=== PATIENT | female | born 1945 | race Asian ===

== ENCOUNTER 2017-05-02 05:44 | Inpatient (IN) | payer MEDICARE, OTHER ==
[~2017-05-02] VITALS: Ht 157.5 cm; Wt 48.5 kg
[2017-05-02] VITALS (7 sets, daily range): BP systolic 109–189; BP diastolic 61–91
[2017-05-02] MEDS ORDERED: VENTOLIN HFA18 GM INH ×2 (05:47→06:29)
[2017-05-02] MEDS ORDERED: Ipratropium 0.02% Inh Soln 2.5ml UD ONE (05:48)
[2017-05-02] MEDS ORDERED: Albuterol ud Inhalation ONE (05:48)
--- NOTE | 2017-05-02 05:50 | Emergency Room Report ---
History of Present Illness General Chief Complaint: Dyspnea/Respdistress Source: Patient, EMS Present Illness HPI Is a 71-year-old female with a history of COPD. She's only taking albuterol inhaler. Not on oxygen at home. She was just admitted at [facility] 17 days ago. She presents with shortness of breath. Per EMS she was in respiratory distress. Oxygenation was 97% on 2 L. She says she's not a smoker by EMS in her house smells of smoke. They gave her 5 mg of albuterol treatment and brought her here. Patient said she felt better now. Onset tonight. No nausea no vomiting. No fever chills denies chest pain. Worse with exertion. Allergies: Coded Allergies: No Known Allergies (Unverified , 05/02/17) Patient History Past Medical History: see triage record, old chart reviewed, COPD Past Surgical History: other Pertinent Family History: none Social History: Denies: smoking Last Menstrual Period: N/A Now: No Immunizations: other Reviewed Nursing Documentation: PMH: Agreed, PSxH: Agreed Nursing Documentation-PMH Hx COPD: Yes Review of Systems Eye: Denies: eye pain, blurred vision ENT: Denies: ear pain, nose congestion, throat swelling Respiratory: Reports: cough, shortness of breath, wheezing Cardiovascular: Denies: chest pain, palpitations Gastrointestinal: Denies: abdominal pain, diarrhea, nausea, vomiting Musculoskeletal: Denies: back pain, joint pain Skin: Denies: rash Neurological: Denies: headache, numbness Endocrine: Denies: increased thirst, increased urine Hematologic/Lymphatic: Denies: easy bruising All Other Systems: negative except mentioned in HPI Physical Exam Vital Signs Date Time Temp Pulse Resp B/P (MAP) Pulse Ox O2 Delivery O2 Flow Rate FiO2 05/02/17 05:38 97.0 102 30 188/103 97 Nasal Cannula vitals with high blood pressure Sp02 EP Interpretation: reviewed, normal General Appearance: no apparent distress, alert, thin Head: normocephalic, atraumatic Eyes: bilateral eye PERRL, bilateral eye EOMI ENT: hearing grossly normal, normal pharynx Neck: full range of motion, supple, no meningismus Respiratory: chest non-tender, respiratory distress, decreased breath sounds, accessory muscle use, wheezing Cardiovascular #1: regular rate, rhythm, no murmur Gastrointestinal: normal bowel sounds, non tender, no mass, no organomegaly, no bruit, non-distended Musculoskeletal: back normal, gait/station normal, normal range of motion Psychiatric: mood/affect normal Skin: warm/dry Medical Decision Making Diagnostic Impression: Primary Impression: Respiratory distress Additional Impressions: Acute on chronic respiratory failure Qualified Codes: J96.20 - Acute and chronic respiratory failure, unspecified whether with hypoxia or hypercapnia COPD exacerbation ER Course Patient presents with respiratory distress secondary to COPD exacerbation. Blood pressure improved after nebulizer treatment. She said she felt better now. She did not require BiPAP. She receive nebulizer treatment and steroid. Will admit for further workup. Lab Results Impression labs unremarkable EKG Diagnostic Results Rate: normal Rhythm: NSR ST Segments: no acute changes Rhythm Strip Diag. Results Rhythm Strip Time: 06:19 EP Interpretation: yes Rate: 91 Rhythm: NSR, no PVC's, no ectopy Chest X-Ray Diagnostic Results Chest X-Ray Diagnostic Results : Chest X-Ray Ordered: Yes # of Views/Limited/Complete: 1 View Indication: Shortness of Breath EP Interpretation: Yes Interpretation: no consolidation, no effusion, no pneumothorax, no acute cardiopulmonary disease Impression: Other - copd Electronically Signed by: Electronically signed by Rich Shepherd MD Last Vital Signs Date Time Temp Pulse Resp B/P (MAP) Pulse Ox O2 Delivery O2 Flow Rate FiO2 05/02/17 05:38 97.0 102 30 188/103 97 Nasal Cannula Status: improved Disposition: ADMITTED INPATIENT Condition: Serious RICH SHEPHERD M.D. May 02, 2017 05:50
[2017-05-02] MEDS ORDERED: Albuterol ud Inhalation HHN ONE (06:00)
[2017-05-02] MEDS ORDERED: Ipratropium 0.02% Inh Soln 2.5ml UD HHN ONE (06:00)
[2017-05-02] MEDS ORDERED: Solu-MEDROL 125mg Inj IVP ONE (06:00)
[2017-05-02 06:10] LABS: EOSINOPHILS % (AUTO) 2.9 % (0.0-3.0); LYMPHOCYTES % (AUTO) 43.6 % (20.0-45.0); MEAN CORPUSCULAR HEMOGLOBIN 30.3 PG (27.0-31.0); MEAN CORPUSCULAR HGB CONC 32.4 G/DL (32.0-36.0); MEAN CORPUSCULAR VOLUME 93 FL (80-99); MEAN PLATELET VOLUME 6.7 FL (6.5-10.1); MONOCYTES % (AUTO) 6.5 % (1.0-10.0); NEUTROPHILS % (AUTO) 46.1 % (45.0-75.0); PLATELET COUNT 241 K/UL (150-450); RED BLOOD COUNT 4.86 M/UL (4.20-5.40); RED CELL DISTRIBUTION WIDTH 11.9 % (11.6-14.8); WHITE BLOOD COUNT 6.4 K/UL (4.8-10.8)
[2017-05-02 06:25] LABS: ALANINE AMINOTRANSFERASE 30 U/L (12-78); ANION GAP 4 mmol/L (5-15); ASPARTATE AMINO TRANSFERASE 21 U/L (15-37); CALCIUM 9.1 MG/DL (8.5-10.1); CARBON DIOXIDE 34 MMOL/L (21-32); CHLORIDE 102 MMOL/L (98-107); CREATININE 0.6 MG/DL (0.55-1.30); SODIUM 140 MMOL/L (136-145); TOTAL PROTEIN 7.5 G/DL (6.4-8.2)
[2017-05-02] MEDS ORDERED: SPIRIVA18 MCG INH (06:29)
[2017-05-02 06:50] LABS: CKMB 1.2 NG/ML (0.0-3.6)
--- NOTE | 2017-05-02 07:12 | Emergency Room Report ---
History of Present Illness General Chief Complaint: Dyspnea/Respdistress Source: Patient, EMS Present Illness Allergies: Coded Allergies: No Known Allergies (Unverified , 05/02/17) Patient History Last Menstrual Period: N/A Now: No Nursing Documentation-[facility] Hx COPD: Yes Physical Exam Vital Signs Date Time Temp Pulse Resp B/P (MAP) Pulse Ox O2 Delivery O2 Flow Rate FiO2 05/02/17 05:38 97.0 102 30 189/91 100 Bi-pap 15.0 Medical Decision Making Diagnostic Impression: Primary Impression: Respiratory distress Additional Impressions: Acute on chronic respiratory failure Qualified Codes: J96.20 - Acute and chronic respiratory failure, unspecified whether with hypoxia or hypercapnia COPD exacerbation ER Course Please refer to the initial note for the history exam and presentation At this time patient's x-ray is concerning for right lower lobe increased markings and possible infiltrate Blood cultures have been added to the workup patient provided with IV antibiotics Patient has done better after breathing treatment There is a COPD component as well The patient requires further inpatient care Labs Test 05/02/17 05:47 White Blood Count 6.4 K/UL (4.8-10.8) Red Blood Count 4.86 M/UL (4.20-5.40) Hemoglobin 14.8 G/DL (12.0-16.0) Hematocrit 45.5 % (37.0-47.0) Mean Corpuscular Volume 93 FL (80-99) Mean Corpuscular Hemoglobin 30.3 PG (27.0-31.0) Mean Corpuscular Hemoglobin Concent 32.4 G/DL (32.0-36.0) Red Cell Distribution Width 11.9 % (11.6-14.8) Platelet Count 241 K/UL (150-450) Mean Platelet Volume 6.7 FL (6.5-10.1) Neutrophils (%) (Auto) 46.1 % (45.0-75.0) Lymphocytes (%) (Auto) 43.6 % (20.0-45.0) Monocytes (%) (Auto) 6.5 % (1.0-10.0) Eosinophils (%) (Auto) 2.9 % (0.0-3.0) Basophils (%) (Auto) 1.0 % (0.0-2.0) Sodium Level 140 MMOL/L (136-145) Potassium Level 4.0 MMOL/L (3.5-5.1) Chloride Level 102 MMOL/L (98-107) Carbon Dioxide Level 34 MMOL/L (21-32) Anion Gap 4 mmol/L (5-15) Blood Urea Nitrogen 14 mg/dL (7-18) Creatinine 0.6 MG/DL (0.55-1.30) Estimat Glomerular Filtration Rate mL/min (>60) Glucose Level 119 MG/DL (74-106) Calcium Level 9.1 MG/DL (8.5-10.1) Total Bilirubin 0.4 MG/DL (0.2-1.0) Aspartate Amino Transf (AST/SGOT) 21 U/L (15-37) Alanine Aminotransferase (ALT/SGPT) 30 U/L (12-78) Alkaline Phosphatase 80 U/L (46-116) Total Creatine Kinase 32 U/L (26-308) Creatine Kinase MB 1.2 NG/ML (0.0-3.6) Creatine Kinase MB Relative Index 3.7 Troponin I 0.017 ng/mL (0.000-0.056) Pro-B-Type Natriuretic Peptide 80 pg/mL (0-125) Total Protein 7.5 G/DL (6.4-8.2) Albumin 3.8 G/DL (3.4-5.0) Globulin 3.7 g/dL Albumin/Globulin Ratio 1.0 (1.0-2.7) EKG Diagnostic Results Rate: normal Rhythm: NSR ST Segments: other - Nonspecific ST and T-wave changes Rhythm Strip Diag. Results EP Interpretation: yes Rate: 88 Rhythm: NSR, no PVC's, no ectopy Chest X-Ray Diagnostic Results Chest X-Ray Diagnostic Results : Chest X-Ray Ordered: Yes # of Views/Limited/Complete: 1 View Indication: Shortness of Breath EP Interpretation: Yes Interpretation: no effusion, no pneumothorax, other - Increased right lower lobe markings, atelectasis versus chronic markings, versus infiltrate, heart size normal Impression: Other - Right lower lobe markings Electronically Signed by: Cristy Rowan DO Last Vital Signs Date Time Temp Pulse Resp B/P (MAP) Pulse Ox O2 Delivery O2 Flow Rate FiO2 05/02/17 05:53 97.0 95 25 189/91 100 Simple Mask 6.0 Status: improved Disposition: ADMITTED INPATIENT Condition: Serious Referrals: NOT CHOSEN IPA/,REFERRING (PCP) CRISTY ROWAN D.O. May 02, 2017 07:12
[2017-05-02 08:00] LABS: APPEARANCE,URINE CLEAR; KETONES,URINE NEGATIVE (NEGATIVE); LEUKOCYTE ESTERASE ,URINE 1+ (NEGATIVE); NITRITE,URINE NEGATIVE (NEGATIVE); PH,URINE 5 (4.5-8.0); PROTEIN,URINE NEGATIVE (NEGATIVE); UROBILINOGEN,URINE NORMAL MG/DL (0.0-1.0)
[2017-05-02] MEDS ORDERED: Ketorolac 30mg Inj IV PRN (08:00)
[2017-05-02] MEDS ORDERED: LORazepam Inj 2mg/ml 1ml IV PRN (08:00)
[2017-05-02] MEDS ORDERED: Promethazine/Codeine 5ml UD ORAL PRN (08:00)
[2017-05-02] MEDS ORDERED: Nitroglycerin Subl 0.4mg tab SL PRN (08:00)
[2017-05-02] MEDS ORDERED: Albuterol/Ipratropium 3ml neb HHN PRN (08:00)
[2017-05-02 08:22] LABS: BACTERIA,URINE FEW /HPF; SQUAMOUS EPITHELIAL CELL,UR FEW /LPF (NONE/OCC); WBC,URINE 0-2 /HPF (0 - 2)
[2017-05-02] MEDS: Heparin 5000 units/ml inj SUBQ SCH ×2 (10:26→21:08)
[2017-05-02] MEDS: Theophylline ER 100mg ORAL SCH ×2 (10:26→21:04)
--- NOTE | 2017-05-02 11:34 | Diagnostic Imaging Report ---
Indication: Dyspnea Comparison: None A single view chest radiograph was obtained. Findings: Lungs are hyperexpanded. No infiltrate identified. Heart size is borderline. Aorta is calcified. Bones are osteopenic. Impression: COPD
[2017-05-02] MEDS: Solu-MEDROL 125mg Inj IV SCH ×3 (12:12→23:44)
[2017-05-02] MEDS ORDERED: Pneumococcal Vaccine 25mcg/0.5ml IM ONE (13:00)
[2017-05-02] MEDS ORDERED: Flu Vaccine Quadrivalent 0.5ml IM ONE (13:00)
[2017-05-02] MEDS ORDERED: Piperacillin/Tazobactam 2.25 GM in D5W 55 ML IV SCH (14:00)
[2017-05-02] MEDS: Zosyn 3.375gm/50ml Premix 50 ML IVPB SCH ×2 (14:28→22:03)
[2017-05-02] MEDS ORDERED: OMEPRAZOLE40 M1 ORAL (15:31)
[2017-05-02] MEDS ORDERED: BUSPIRONE HCL15 MG ORAL (15:31)
[2017-05-02] MEDS ORDERED: SPIRIVA INHALE1 PUF1 INH (15:31)
--- NOTE | 2017-05-02 16:04 | History and Physical ---
History of Present Illness General Date patient seen: May 02, 2017 Reason for Hospitalization: Dyspnea/Respdistress Present Illness HPI 71-year-old female with a history of COPD on albuterol inhaler presented with shortness of breath. Per EMS she was in respiratory distress. She says she's not a smoker by EMS in her house smells of smoke. They gave her 5 mg of albuterol treatment and brought her here. Patient said she felt better now. she was diagnosed to have acute exacerbation of COPD and admitted to telemetry for management. Allergies: Coded Allergies: No Known Allergies (Unverified , 05/02/17) Medication History Scheduled Albuterol Sulfate (Ventolin Hfa), 1 PUFF INH EVERY 6 HOURS, (Reported) Albuterol Sulfate (Ventolin Hfa), 1 PUFF INH EVERY 6 HOURS, (Reported) Buspirone Hcl* (Buspirone Hcl*), 15 MG ORAL TWICE A DAY, (Reported) Omeprazole (Omeprazole), 40 MG ORAL DAILY, (Reported) Tiotropium [place] (Spiriva), 1 PUFF INH DAILY, (Reported) Tiotropium [place]* (Spiriva*), 1 PUFF INH DAILY, (Reported) Patient History Healthcare decision maker Resuscitation status Full Code Advanced Directive on File Past Medical/Surgical History Past Medical/Surgical History: (1) COPD (chronic obstructive pulmonary disease) Review of Systems Constitutional: Reports: no symptoms Eye: Reports: no symptoms Physical Exam General Appearance: WD/WN, no apparent distress Lines, tubes and drains: peripheral HEENT: normocephalic, atraumatic Neck: non-tender, normal alignment Respiratory/Chest: chest wall non-tender, decreased breath sounds Cardiovascular/Chest: normal peripheral pulses, normal rate Abdomen: normal bowel sounds, non tender Genitourinary/Rectal: normal genital exam, normal rectal exam Extremities: normal range of motion, non-tender Skin Exam: normal pigmentation 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 Lymphatic: anterior cervical Last 24 Hour Vital Signs Date Time Temp Pulse Resp B/P (MAP) Pulse Ox O2 Delivery O2 Flow Rate FiO2 05/02/17 12:00 98.2 95 20 109/77 96 Nasal Cannula 2.0 05/02/17 12:00 92 05/02/17 08:30 97.2 92 20 129/64 95 Nasal Cannula 2.0 05/02/17 08:00 90 05/02/17 07:50 97.0 90 18 115/66 99 Nasal Cannula 3.0 05/02/17 07:30 90 18 115/66 99 Nasal Cannula 3.0 05/02/17 07:00 85 21 127/61 100 Nasal Cannula 3.0 05/02/17 05:53 97.0 95 25 189/91 100 Simple Mask 6.0 05/02/17 05:53 93 25 Simple Mask 6.0 05/02/17 05:53 93 25 100 Simple Mask 6.0 05/02/17 05:52 93 25 Simple Mask 6.0 05/02/17 05:38 97.0 102 30 189/91 100 Bi-pap 15.0 Laboratory Tests Test 05/02/17 05:47 05/02/17 07:50 White Blood Count 6.4 K/UL (4.8-10.8) Red Blood Count 4.86 M/UL (4.20-5.40) Hemoglobin 14.8 G/DL (12.0-16.0) Hematocrit 45.5 % (37.0-47.0) Mean Corpuscular Volume 93 FL (80-99) Mean Corpuscular Hemoglobin 30.3 PG (27.0-31.0) Mean Corpuscular Hemoglobin Concent 32.4 G/DL (32.0-36.0) Red Cell Distribution Width 11.9 % (11.6-14.8) Platelet Count 241 K/UL (150-450) Mean Platelet Volume 6.7 FL (6.5-10.1) Neutrophils (%) (Auto) 46.1 % (45.0-75.0) Lymphocytes (%) (Auto) 43.6 % (20.0-45.0) Monocytes (%) (Auto) 6.5 % (1.0-10.0) Eosinophils (%) (Auto) 2.9 % (0.0-3.0) Basophils (%) (Auto) 1.0 % (0.0-2.0) Sodium Level 140 MMOL/L (136-145) Potassium Level 4.0 MMOL/L (3.5-5.1) Chloride Level 102 MMOL/L (98-107) Carbon Dioxide Level 34 MMOL/L (21-32) H Anion Gap 4 mmol/L (5-15) L Blood Urea Nitrogen 14 mg/dL (7-18) Creatinine 0.6 MG/DL (0.55-1.30) Estimat Glomerular Filtration Rate mL/min (>60) Glucose Level 119 MG/DL (74-106) H Calcium Level 9.1 MG/DL (8.5-10.1) Total Bilirubin 0.4 MG/DL (0.2-1.0) Aspartate Amino Transf (AST/SGOT) 21 U/L (15-37) Alanine Aminotransferase (ALT/SGPT) 30 U/L (12-78) Alkaline Phosphatase 80 U/L (46-116) Total Creatine Kinase 32 U/L (26-308) Creatine Kinase MB 1.2 NG/ML (0.0-3.6) Creatine Kinase MB Relative Index 3.7 Troponin I 0.017 ng/mL (0.000-0.056) Pro-B-Type Natriuretic Peptide 80 pg/mL (0-125) Total Protein 7.5 G/DL (6.4-8.2) Albumin 3.8 G/DL (3.4-5.0) Globulin 3.7 g/dL Albumin/Globulin Ratio 1.0 (1.0-2.7) Urine Color Pale yellow Urine Appearance Clear Urine pH 5 (4.5-8.0) Urine Specific [place] 1.015 (1.005-1.035) Urine Protein Negative (NEGATIVE) Urine Glucose (UA) Negative (NEGATIVE) Urine Ketones Negative (NEGATIVE) Urine Occult Blood 2+ (NEGATIVE) H Urine Nitrite Negative (NEGATIVE) Urine Bilirubin Negative (NEGATIVE) Urine Urobilinogen Normal MG/DL (0.0-1.0) Urine Leukocyte Esterase 1+ (NEGATIVE) H Urine RBC 2-4 /HPF (0 - 2) H Urine WBC 0-2 /HPF (0 - 2) Urine Squamous Epithelial Cells Few /LPF (NONE/OCC) Urine Bacteria Few /HPF (NONE) Height (Feet): 5 Height (Inches): 2.00 Weight (Pounds): 107 Medications Current Medications Medications (Trade) Dose Ordered Sig/Colleen Route PRN Reason Start Time Stop Time Status Last Admin Dose Admin Albuterol/ Ipratropium (Albuterol/ Ipratropium) 3 ml Q4H PRN HHN dyspnea 05/02/17 08:00 05/07/17 07:59 Dextrose (Dextrose 50%) STAT PRN IV Hypoglycemia 05/02/17 08:00 06/01/17 07:59 Heparin Sodium (Porcine) (Heparin 5000 units/ml) 5,000 units EVERY 12 HOURS SUBQ 05/02/17 09:00 06/01/17 08:59 05/02/17 10:26 Ketorolac Tromethamine (Toradol 30mg) 30 mg Q8H PRN IV moderate pain 4-6 05/02/17 08:00 05/07/17 07:59 Lorazepam (Ativan 2mg/ml 1ml) 0.5 mg Q4H PRN IV For Anxiety 05/02/17 08:00 05/09/17 07:59 Methylprednisolone Sodium Succinate (Solu-MEDROL) 60 mg EVERY 6 HOURS IV 05/02/17 12:00 06/01/17 11:59 05/02/17 12:12 Nitroglycerin (Ntg) 0.4 mg Q5M X 3 DOSES PRN SL Prn Chest Pain 05/02/17 08:00 06/01/17 07:59 Ondansetron HCl (Zofran) 4 mg Q6H PRN IVP Nausea & Vomiting 05/02/17 08:00 06/01/17 07:59 Piperacillin/ Tazobactam/ Dextrose 50 ml @ 12.5 mls/hr Q8HR IVPB 05/02/17 14:00 05/07/17 13:59 05/02/17 14:28 Promethazine HCl/ Codeine (Phenergan with Codeine) 5 ml Q6H PRN ORAL cough 05/02/17 08:00 06/01/17 07:59 Temazepam (Restoril) 15 mg HSPRN PRN ORAL Insomnia 05/02/17 21:00 05/09/17 20:59 Theophylline ([place]arcel[place]-Dur) 100 mg EVERY 12 HOURS ORAL 05/02/17 09:00 06/01/17 08:59 05/02/17 10:26 Assessment/Plan Problem List: (1) Acute on chronic respiratory failure ICD Codes: J96.20 - Acute and chronic respiratory failure, unspecified whether with hypoxia or hypercapnia SNOMED: 48306060 Qualifiers: Qualified Codes: J96.20 - Acute and chronic respiratory failure, unspecified whether with hypoxia or hypercapnia (2) COPD exacerbation ICD Codes: J44.1 - Chronic obstructive pulmonary disease with (acute) exacerbation SNOMED: 326863150687873 Assessment/Plan respiratory treatment IV steroids check sputum iv abx echo cardiogram to rule out cardiac component. dvt prophylaxis. OSWALD LEAL May 02, 2017 16:04
--- NOTE | 2017-05-02 17:56 | Cardiology Progress Note ---
Assessment/Plan Assessment/Plan [id number] Objective Last 24 Hour Vital Signs Date Time Temp Pulse Resp B/P (MAP) Pulse Ox O2 Delivery O2 Flow Rate FiO2 05/02/17 16:00 98 05/02/17 16:00 98.4 94 20 128/74 94 Nasal Cannula 2.0 05/02/17 12:00 98.2 95 20 109/77 96 Nasal Cannula 2.0 05/02/17 12:00 92 05/02/17 08:30 97.2 92 20 129/64 95 Nasal Cannula 2.0 05/02/17 08:00 90 05/02/17 07:50 97.0 90 18 115/66 99 Nasal Cannula 3.0 05/02/17 07:30 90 18 115/66 99 Nasal Cannula 3.0 05/02/17 07:00 85 21 127/61 100 Nasal Cannula 3.0 05/02/17 05:53 97.0 95 25 189/91 100 Simple Mask 6.0 05/02/17 05:53 93 25 Simple Mask 6.0 05/02/17 05:53 93 25 100 Simple Mask 6.0 05/02/17 05:52 93 25 Simple Mask 6.0 05/02/17 05:38 97.0 102 30 189/91 100 Bi-pap 15.0 Intake and Output 05/02/17 05/03/17 19:00 07:00 Intake Total 37.5 ml Balance 37.5 ml Intake IV Total 37.5 ml Laboratory Tests Test 05/02/17 05:47 05/02/17 07:50 White Blood Count 6.4 K/UL (4.8-10.8) Red Blood Count 4.86 M/UL (4.20-5.40) Hemoglobin 14.8 G/DL (12.0-16.0) Hematocrit 45.5 % (37.0-47.0) Mean Corpuscular Volume 93 FL (80-99) Mean Corpuscular Hemoglobin 30.3 PG (27.0-31.0) Mean Corpuscular Hemoglobin Concent 32.4 G/DL (32.0-36.0) Red Cell Distribution Width 11.9 % (11.6-14.8) Platelet Count 241 K/UL (150-450) Mean Platelet Volume 6.7 FL (6.5-10.1) Neutrophils (%) (Auto) 46.1 % (45.0-75.0) Lymphocytes (%) (Auto) 43.6 % (20.0-45.0) Monocytes (%) (Auto) 6.5 % (1.0-10.0) Eosinophils (%) (Auto) 2.9 % (0.0-3.0) Basophils (%) (Auto) 1.0 % (0.0-2.0) Sodium Level 140 MMOL/L (136-145) Potassium Level 4.0 MMOL/L (3.5-5.1) Chloride Level 102 MMOL/L (98-107) Carbon Dioxide Level 34 MMOL/L (21-32) H Anion Gap 4 mmol/L (5-15) L Blood Urea Nitrogen 14 mg/dL (7-18) Creatinine 0.6 MG/DL (0.55-1.30) Estimat Glomerular Filtration Rate mL/min (>60) Glucose Level 119 MG/DL (74-106) H Calcium Level 9.1 MG/DL (8.5-10.1) Total Bilirubin 0.4 MG/DL (0.2-1.0) Aspartate Amino Transf (AST/SGOT) 21 U/L (15-37) Alanine Aminotransferase (ALT/SGPT) 30 U/L (12-78) Alkaline Phosphatase 80 U/L (46-116) Total Creatine Kinase 32 U/L (26-308) Creatine Kinase MB 1.2 NG/ML (0.0-3.6) Creatine Kinase MB Relative Index 3.7 Troponin I 0.017 ng/mL (0.000-0.056) Pro-B-Type Natriuretic Peptide 80 pg/mL (0-125) Total Protein 7.5 G/DL (6.4-8.2) Albumin 3.8 G/DL (3.4-5.0) Globulin 3.7 g/dL Albumin/Globulin Ratio 1.0 (1.0-2.7) Urine Color Pale yellow Urine Appearance Clear Urine pH 5 (4.5-8.0) Urine Specific [place] 1.015 (1.005-1.035) Urine Protein Negative (NEGATIVE) Urine Glucose (UA) Negative (NEGATIVE) Urine Ketones Negative (NEGATIVE) Urine Occult Blood 2+ (NEGATIVE) H Urine Nitrite Negative (NEGATIVE) Urine Bilirubin Negative (NEGATIVE) Urine Urobilinogen Normal MG/DL (0.0-1.0) Urine Leukocyte Esterase 1+ (NEGATIVE) H Urine RBC 2-4 /HPF (0 - 2) H Urine WBC 0-2 /HPF (0 - 2) Urine Squamous Epithelial Cells Few /LPF (NONE/OCC) Urine Bacteria Few /HPF (NONE) NICK GARRIDO May 02, 2017 17:56
--- NOTE | 2017-05-02 19:34 | Cardiology Report ---
APPROVED REPORT EXAM: Two-dimensional and M-mode echocardiogram with Doppler and color Doppler. INDICATION Left Ventricular Function M-Mode DIMENSIONS IVSd1.4 (0.7-1.1cm)Left Atrium (MM)2.5 (1.6-4.0cm) LVDd3.8 (3.5-5.6cm)Aortic Root2.8 (2.0-3.7cm) PWd0.7 (0.7-1.1cm)Aortic Cusp Exc.1.8 (1.5-2.0cm) LVDs2.3 (2.5-4.0cm) PWs0.8 cm Normal left ventricular chamber size, systolic function and wall motion. Left ventricular ejection fraction estimated to be 60 %. Mild left ventricular hypertrophy. Anterior Echo-free space, may be due to pericardial fat or effusion. All other cardiac chamber sizes are within normal limits. Mild focal aortic valve sclerosis with adequate cusp excursion. Mildly thickened mitral valve leaflets with normal excursion. Mitral annulus and aortic root calcification. Pulmonic valve not well visualized. Normal tricuspid valve structure. IVC at normal size with physiologic collapse. A color flow and spectral Doppler study was performed and revealed: Mild aortic regurgitation. No mitral regurgitation. Mitral diastolic velocities suggest reduced left ventricular relaxation c/w mild LV diastolic dysfunction (Grade I ). Mild tricuspid regurgitation. Tricuspid systolic velocities suggests peak right ventricular systolic pressure of 31 mmHg. No pulmonic regurgitation present.
--- NOTE | 2017-05-02 20:16 | Cardiology Report ---
APPROVED REPORT EKG Measurement Heart [id number] Sinus tachycardia. Right atrial enlargement Possible Anterior infarct, age undetermined Abnormal ECG
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
[2017-05-03] VITALS: BP 118/74
[2017-05-03 04:37] VITALS: BP_SYST 107; BP_SYST 117; BP_DIAS 63; BP_DIAS 72
[2017-05-03] MEDS: Solu-MEDROL 125mg Inj IV SCH ×2 (05:50→22:14)
[2017-05-03] MEDS: Zosyn 3.375gm/50ml Premix 50 ML IVPB SCH ×2 (05:50→13:14)
[2017-05-03 08:00] VITALS: BP 138/84
[2017-05-03] MEDS: Heparin 5000 units/ml inj SUBQ SCH ×2 (08:39→22:15)
[2017-05-03] MEDS: Theophylline ER 100mg ORAL SCH ×2 (08:39→22:14)
--- NOTE | 2017-05-03 09:20 | Pulmonology Progress Note ---
Assessment/Plan Problems: (1) Acute on chronic respiratory failure (2) COPD exacerbation Assessment/Plan improving echo report noted cardio note appreciated taper steoids check sputum Subjective ROS Limited/Unobtainable: No Interval Events: still short of breath, but feeling better Constitutional: Reports: no symptoms HEENT: Repors: no symptoms Allergies: Coded Allergies: No Known Allergies (Unverified , 05/02/17) Objective Last 24 Hour Vital Signs Date Time Temp Pulse Resp B/P (MAP) Pulse Ox O2 Delivery O2 Flow Rate FiO2 05/03/17 08:00 97.6 95 20 138/84 95 Nasal Cannula 2.0 05/03/17 04:37 98.2 80 18 117/63 99 Nasal Cannula 2.0 05/03/17 04:37 84 16 107/72 94 Nasal Cannula 2.0 05/03/17 04:00 81 05/03/17 00:00 97.3 83 22 118/74 95 Nasal Cannula 2.0 05/03/17 00:00 85 05/02/17 20:43 97.0 104 24 125/81 94 Nasal Cannula 2.0 104 05/02/17 20:00 95 05/02/17 16:00 98 05/02/17 16:00 98.4 94 20 128/74 94 Nasal Cannula 2.0 05/02/17 12:00 98.2 95 20 109/77 96 Nasal Cannula 2.0 05/02/17 12:00 92 Intake and Output 05/03/17 05/04/17 19:00 07:00 Intake Total 12.5 ml Balance 12.5 ml IV Total 12.5 ml General Appearance: cachetic HEENT: normocephalic, atraumatic Respiratory/Chest: chest wall non-tender, crackles/rales Breasts: no masses Cardiovascular: normal peripheral pulses, normal rate Abdomen: normal bowel sounds, soft, non tender Genitourinary: normal external genitalia Extremities: no clubbing Neurologic/Psychiatric: pet walker II-XII grossly normal Lymphatic: no neck adenopathy Current Medications Medications (Trade) Dose Ordered Sig/Colleen Route PRN Reason Start Time Stop Time Status Last Admin Dose Admin Albuterol/ Ipratropium (Albuterol/ Ipratropium) 3 ml Q4H PRN HHN dyspnea 05/02/17 08:00 05/07/17 07:59 Dextrose (Dextrose 50%) STAT PRN IV Hypoglycemia 05/02/17 08:00 06/01/17 07:59 Heparin Sodium (Porcine) (Heparin 5000 units/ml) 5,000 units EVERY 12 HOURS SUBQ 05/02/17 09:00 06/01/17 08:59 05/03/17 08:39 Ketorolac Tromethamine (Toradol 30mg) 30 mg Q8H PRN IV moderate pain 4-6 05/02/17 08:00 05/07/17 07:59 Lorazepam (Ativan 2mg/ml 1ml) 0.5 mg Q4H PRN IV For Anxiety 05/02/17 08:00 05/09/17 07:59 Methylprednisolone Sodium Succinate (Solu-MEDROL) 60 mg EVERY 6 HOURS IV 05/02/17 12:00 06/01/17 11:59 05/03/17 05:50 Nitroglycerin (Ntg) 0.4 mg Q5M X 3 DOSES PRN SL Prn Chest Pain 05/02/17 08:00 06/01/17 07:59 Ondansetron HCl (Zofran) 4 mg Q6H PRN IVP Nausea & Vomiting 05/02/17 08:00 06/01/17 07:59 Piperacillin/ Tazobactam/ Dextrose 50 ml @ 12.5 mls/hr Q8HR IVPB 05/02/17 14:00 05/07/17 13:59 05/03/17 05:50 Promethazine HCl/ Codeine (Phenergan with Codeine) 5 ml Q6H PRN ORAL cough 05/02/17 08:00 06/01/17 07:59 Temazepam (Restoril) 15 mg HSPRN PRN ORAL Insomnia 05/02/17 21:00 05/09/17 20:59 Theophylline (Marcelino-Dur) 100 mg EVERY 12 HOURS ORAL 05/02/17 09:00 06/01/17 08:59 05/03/17 08:39 OSWALD LEAL May 03, 2017 09:20
[2017-05-03] MEDS ORDERED: Tubing IV Secondary IV ONE (09:26)
[2017-05-03] MEDS ORDERED: NS 275ml ONE (09:26)
[2017-05-03 11:56] VITALS: BP 123/72
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
[2017-05-03 15:47] VITALS: BP 123/79
--- NOTE | 2017-05-03 16:51 | Consultation ---
Consult Note Consult Note [id number] GIANFRANCO MORALES M.D. May 03, 2017 16:51
[2017-05-03] MEDS ORDERED: Azithromycin 250mg tab ORAL SCH (17:00)
[2017-05-03 20:00] VITALS: BP 120/74
[2017-05-03] MEDS ORDERED: Nitroglycerin Subl 0.4mg tab SL PRN (20:45)
[2017-05-03] MEDS ORDERED: Promethazine/Codeine 5ml UD ORAL PRN (21:00)
[2017-05-03] MEDS ORDERED: Albuterol/Ipratropium 3ml neb HHN PRN (21:00)
[2017-05-03] MEDS ORDERED: LORazepam Inj 2mg/ml 1ml IV PRN (21:00)
[2017-05-03] MEDS ORDERED: Solu-MEDROL 125mg Inj IV SCH (21:00)
[2017-05-04] VITALS: BP 121/81
--- NOTE | 2017-05-04 00:15 | Consultation ---
DATE OF CONSULTATION: 05/02/2017 INFECTIOUS DISEASES CONSULTATION REFERRING PHYSICIAN: Diana Bass M.D. REASON FOR CONSULTATION: Evaluation of the patient for pneumonia, COPD exacerbation, and antibiotic management. HISTORY OF PRESENT ILLNESS: The patient is a pleasant 71-year-old female with multiple medical problems, who was admitted to this medical center for shortness of breath and mild cough. The patient had COPD exacerbation. Infectious Diseases consultation being requested for further evaluation of the patient's antibiotic management. The patient sometimes feels chills. Also, the patient has a history of renal stone, has mild left flank tenderness, however, no dysuria. PAST MEDICAL HISTORY: 1. COPD. 2. Renal stone. MEDICATIONS: On Zosyn and Solu-Medrol. ALLERGIES: No known drug allergies. SOCIAL HISTORY: The patient lives at home. FAMILY HISTORY: Unavailable. REVIEW OF SYSTEMS: HEENT: No recent change in vision or hearing. PULMONARY: As mentioned above. CARDIOVASCULAR: No chest pain or palpitation. GASTROINTESTINAL/ABDOMEN: No nausea or vomiting. GENITOURINARY: As mentioned above. NEUROLOGIC: No seizure. PHYSICAL EXAMINATION: VITAL SIGNS: Temperature 97 degrees, blood pressure 122/69, pulse 86 and respiratory rate 18. HEENT: Mild pale conjunctivae. No icterus. NECK: No JVD. CHEST: Clear. HEART: S1 and S2. ABDOMEN: Soft. Mild left flank tenderness. NEUROLOGIC: Awake and alert. LABORATORY AND DIAGNOSTIC DATA: White blood cells, hemoglobin and platelets within normal range. UA 2-4 red blood cells and 0-2 white blood cells. BUN 14 and creatinine 0.6. ALT, AST and alkaline phosphatase unremarkable. Chest x-ray, chronic obstructive pulmonary disease. ASSESSMENT: The patient is a 71-year-old female with, 1. Chronic obstructive pulmonary disease exacerbation. 2. Shortness of breath. PLAN: 1. We will change the antibiotic to Zithromax for five days. 2. Monitor CBC. 3. Monitor BMP. 4. Monitor chest x-ray. 5. Based on the patient's clinical status and laboratories, we will do further recommendation. Thank you, Dr. Bass, for allowing me to participate in the care of this patient. I will follow the patient with you during this hospitalization. Sylvester Rubi M.D. DR: ISAAC JOB#: [id number] CC:
[2017-05-04 04:00] VITALS: BP 127/75
[2017-05-04 08:00] VITALS: BP 157/87
[2017-05-04] MEDS: Azithromycin 250mg tab ORAL SCH (08:36)
[2017-05-04] MEDS: Theophylline ER 100mg ORAL SCH ×2 (08:36→20:11)
[2017-05-04] MEDS: Solu-MEDROL 125mg Inj IV SCH (08:36)
[2017-05-04] MEDS: Heparin 5000 units/ml inj SUBQ SCH ×2 (08:37→20:09)
[2017-05-04 12:00] VITALS: BP 131/77
--- NOTE | 2017-05-04 12:02 | Infectious Diseases Prog Note ---
Assessment/Plan Assessment/Plan ASSESSMENT: The patient is a 71-year-old female with, Chronic obstructive pulmonary disease exacerbation. Shortness of breath. COPD Renal stone PLAN: Cont pt on Zithromax d# 2 / 5 , upon DC will change to PO onitor CBC Monitor BMP Monitor chest x-ray monitor Cultures Subjective Constitutional: Denies: no symptoms, fever, chills, fatigue, anorexia, drenching sweats, other Allergies: Coded Allergies: No Known Allergies (Unverified , 05/02/17) Objective Vital Signs Last 24 Hour Vital Signs Date Time Temp Pulse Resp B/P (MAP) Pulse Ox O2 Delivery O2 Flow Rate FiO2 05/04/17 08:00 97.2 100 20 157/87 94 Nasal Cannula 2.0 05/04/17 07:21 95 Nasal Cannula 3.0 32 05/04/17 07:21 95 20 Nasal Cannula 3.0 32 05/04/17 07:21 Nasal Cannula 3.0 32 05/04/17 04:00 98.2 72 19 127/75 98 Nasal Cannula 1.0 05/04/17 00:00 98.2 80 18 121/81 98 Nasal Cannula 2.0 05/03/17 20:00 97.3 96 20 120/74 94 Nasal Cannula 2.0 05/03/17 19:30 100 20 Nasal Cannula 3.0 32 05/03/17 19:30 94 Nasal Cannula 3.0 32 05/03/17 19:30 Nasal Cannula 3.0 32 05/03/17 15:47 97.0 102 22 123/79 92 Nasal Cannula 2.0 Height (Feet): 5 Height (Inches): 2.00 Weight (Pounds): 107 HEENT: anicteric Respiratory/Chest: chest wall non-tender Cardiovascular: regular rhythm Abdomen: no organomegaly Microbiology Date/Time Source Procedure Growth Status 05/02/17 07:10 Blood Blood Culture - Preliminary NO GROWTH AFTER 24 HOURS Resulted 05/02/17 07:00 Blood Blood Culture - Preliminary NO GROWTH AFTER 24 HOURS Resulted 05/03/17 08:00 Sputum Gram Stain Pending Resulted 05/03/17 08:00 Sputum Sputum Culture - Preliminary NORMAL UPPER RESPIRATORY FAUSTO PRESENT Resulted Current Medications Medications (Trade) Dose Ordered Sig/Colleen Route PRN Reason Start Time Stop Time Status Last Admin Dose Admin Albuterol/ Ipratropium (Albuterol/ Ipratropium) 3 ml Q4H PRN HHN dyspnea 05/03/17 21:00 05/08/17 20:59 Azithromycin (Zithromax) 500 mg DAILY ORAL 05/04/17 09:00 05/10/17 16:59 05/04/17 08:36 Dextrose (Dextrose 50%) STAT PRN IV Hypoglycemia 05/03/17 21:00 06/02/17 20:59 Heparin Sodium (Porcine) (Heparin 5000 units/ml) 5,000 units EVERY 12 HOURS SUBQ 05/03/17 22:00 06/01/17 21:59 05/03/17 22:15 Lorazepam (Ativan 2mg/ml 1ml) 0.5 mg Q4H PRN IV For Anxiety 05/03/17 21:00 05/10/17 20:59 Methylprednisolone Sodium Succinate (Solu-MEDROL) 60 mg EVERY 12 HOURS IV 05/03/17 22:00 06/01/17 21:59 05/04/17 08:36 Nitroglycerin (Ntg) 0.4 mg Q5M X 3 DOSES PRN SL Prn Chest Pain 05/03/17 20:45 06/01/17 07:59 Ondansetron HCl (Zofran) 4 mg Q6H PRN IVP Nausea & Vomiting 05/03/17 21:00 06/02/17 20:59 Promethazine HCl/ Codeine (Phenergan with Codeine) 5 ml Q6H PRN ORAL cough 05/03/17 21:00 06/02/17 20:59 Temazepam (Restoril) 15 mg HSPRN PRN ORAL Insomnia 05/03/17 21:00 05/09/17 20:59 Theophylline (Marcelino-Dur) 100 mg EVERY 12 HOURS ORAL 05/03/17 22:00 06/01/17 21:59 05/04/17 08:36 GIANFRANCO MORALES M.D. May 04, 2017 12:02
[2017-05-04 16:00] VITALS: BP 159/95
--- NOTE | 2017-05-04 17:04 | Pulmonology Progress Note ---
Assessment/Plan Problems: (1) Acute on chronic respiratory failure (2) COPD exacerbation Assessment/Plan dc planning in am feeling much better improving echo report noted cardio note appreciated taper steoids sputum negative Subjective ROS Limited/Unobtainable: No Constitutional: Reports: no symptoms HEENT: Repors: no symptoms Respiratory: Reports: no symptoms Allergies: Coded Allergies: No Known Allergies (Unverified , 05/02/17) Objective Last 24 Hour Vital Signs Date Time Temp Pulse Resp B/P (MAP) Pulse Ox O2 Delivery O2 Flow Rate FiO2 05/04/17 16:00 98.1 100 20 159/95 91 Nasal Cannula 2.0 05/04/17 12:00 97.8 76 20 131/77 100 Room Air 05/04/17 08:00 97.2 100 20 157/87 94 Nasal Cannula 2.0 05/04/17 07:21 95 Nasal Cannula 3.0 32 05/04/17 07:21 95 20 Nasal Cannula 3.0 32 05/04/17 07:21 Nasal Cannula 3.0 32 05/04/17 04:00 98.2 72 19 127/75 98 Nasal Cannula 1.0 05/04/17 00:00 98.2 80 18 121/81 98 Nasal Cannula 2.0 05/03/17 20:00 97.3 96 20 120/74 94 Nasal Cannula 2.0 05/03/17 19:30 100 20 Nasal Cannula 3.0 32 05/03/17 19:30 94 Nasal Cannula 3.0 32 05/03/17 19:30 Nasal Cannula 3.0 32 Intake and Output 05/04/17 05/05/17 19:00 07:00 # Bowel Movements 1 General Appearance: WD/WN HEENT: normocephalic, atraumatic Respiratory/Chest: chest wall non-tender, lungs clear Breasts: no masses Cardiovascular: normal peripheral pulses Abdomen: normal bowel sounds, soft, non tender Genitourinary: normal external genitalia Skin: no rash, no ulcers Neurologic/Psychiatric: no motor/sensory deficits Microbiology Date/Time Source Procedure Growth Status 05/02/17 07:10 Blood Blood Culture - Preliminary NO GROWTH AFTER 24 HOURS Resulted 05/02/17 07:00 Blood Blood Culture - Preliminary NO GROWTH AFTER 24 HOURS Resulted 05/03/17 08:00 Sputum Gram Stain - Final Resulted 05/03/17 08:00 Sputum Sputum Culture - Preliminary NORMAL UPPER RESPIRATORY FAUSTO PRESENT Resulted Current Medications Medications (Trade) Dose Ordered Sig/Colleen Route PRN Reason Start Time Stop Time Status Last Admin Dose Admin Albuterol/ Ipratropium (Albuterol/ Ipratropium) 3 ml Q4H PRN HHN dyspnea 05/03/17 21:00 05/08/17 20:59 Azithromycin (Zithromax) 500 mg DAILY ORAL 05/04/17 09:00 05/10/17 16:59 05/04/17 08:36 Dextrose (Dextrose 50%) STAT PRN IV Hypoglycemia 05/03/17 21:00 06/02/17 20:59 Heparin Sodium (Porcine) (Heparin 5000 units/ml) 5,000 units EVERY 12 HOURS SUBQ 05/03/17 22:00 06/01/17 21:59 05/03/17 22:15 Lorazepam (Ativan 2mg/ml 1ml) 0.5 mg Q4H PRN IV For Anxiety 05/03/17 21:00 05/10/17 20:59 Methylprednisolone Sodium Succinate (Solu-MEDROL) 60 mg EVERY 12 HOURS IV 05/03/17 22:00 06/01/17 21:59 05/04/17 08:36 Nitroglycerin (Ntg) 0.4 mg Q5M X 3 DOSES PRN SL Prn Chest Pain 05/03/17 20:45 06/01/17 07:59 Ondansetron HCl (Zofran) 4 mg Q6H PRN IVP Nausea & Vomiting 05/03/17 21:00 06/02/17 20:59 Promethazine HCl/ Codeine (Phenergan with Codeine) 5 ml Q6H PRN ORAL cough 05/03/17 21:00 06/02/17 20:59 Temazepam (Restoril) 15 mg HSPRN PRN ORAL Insomnia 05/03/17 21:00 05/09/17 20:59 Theophylline (Marcelino-Dur) 100 mg EVERY 12 HOURS ORAL 05/03/17 22:00 06/01/17 21:59 05/04/17 08:36 OSWALD LEAL May 04, 2017 17:04
[2017-05-04 20:00] VITALS: BP 125/79
[2017-05-05] VITALS (7 sets, daily range): BP systolic 110–153; BP diastolic 68–89
[2017-05-05 06:49] LABS: BASOPHILS % (AUTO) 0.8 % (0.0-2.0); EOSINOPHILS % (AUTO) 0.7 % (0.0-3.0); LYMPHOCYTES % (AUTO) 36.3 % (20.0-45.0); MEAN CORPUSCULAR HEMOGLOBIN 29.7 PG (27.0-31.0); MEAN CORPUSCULAR HGB CONC 31.2 G/DL (32.0-36.0); MEAN CORPUSCULAR VOLUME 95 FL (80-99); MEAN PLATELET VOLUME 6.4 FL (6.5-10.1); MONOCYTES % (AUTO) 12.1 % (1.0-10.0); NEUTROPHILS % (AUTO) 50.1 % (45.0-75.0); PLATELET COUNT 244 K/UL (150-450); RED BLOOD COUNT 4.22 M/UL (4.20-5.40); RED CELL DISTRIBUTION WIDTH 12.1 % (11.6-14.8); WHITE BLOOD COUNT 6.5 K/UL (4.8-10.8)
[2017-05-05 07:16] LABS: ALANINE AMINOTRANSFERASE 31 U/L (12-78); ANION GAP 6 mmol/L (5-15); ASPARTATE AMINO TRANSFERASE 12 U/L (15-37); CALCIUM 8.3 MG/DL (8.5-10.1); CARBON DIOXIDE 34 MMOL/L (21-32); CHLORIDE 102 MMOL/L (98-107); CREATININE 0.6 MG/DL (0.55-1.30); POTASSIUM 3.6 MMOL/L (3.5-5.1); SODIUM 142 MMOL/L (136-145); TOTAL PROTEIN 5.9 G/DL (6.4-8.2)
[2017-05-05] MEDS: Azithromycin 250mg tab ORAL SCH (09:23)
[2017-05-05] MEDS: Theophylline ER 100mg ORAL SCH ×2 (09:23→21:18)
[2017-05-05] MEDS: Solu-MEDROL 125mg Inj IV SCH (09:24)
[2017-05-05] MEDS: Heparin 5000 units/ml inj SUBQ SCH ×2 (09:26→21:19)
--- NOTE | 2017-05-05 12:22 | Infectious Diseases Prog Note ---
Assessment/Plan Assessment/Plan ASSESSMENT: The patient is a 71-year-old female with, Chronic obstructive pulmonary disease exacerbation. doubt Nl : SCx: Cx GNR and Nl floral ) contaminant ) Shortness of breath. SP cough has improved COPD Renal stone PLAN: Cont pt on Zithromax d# 3 / 5 , upon DC will change to PO Monitor CBC Monitor BMP Monitor chest x-ray monitor Cultures Subjective Constitutional: Denies: no symptoms, fever, chills, fatigue, anorexia, drenching sweats, other Allergies: Coded Allergies: No Known Allergies (Unverified , 05/02/17) Objective Vital Signs Last 24 Hour Vital Signs Date Time Temp Pulse Resp B/P (MAP) Pulse Ox O2 Delivery O2 Flow Rate FiO2 05/05/17 08:20 85 20 Nasal Cannula 2.0 28 05/05/17 08:20 Nasal Cannula 2.0 28 05/05/17 08:20 97 Nasal Cannula 2.0 28 05/05/17 08:00 99.1 82 20 137/79 96 Nasal Cannula 2.0 05/05/17 04:00 97.9 73 20 138/78 98 Room Air 05/05/17 00:00 97.9 72 20 129/82 98 Nasal Cannula 2.0 05/04/17 20:00 98 20 Nasal Cannula 3.0 32 05/04/17 20:00 97.9 83 20 125/79 98 Room Air 05/04/17 20:00 Nasal Cannula 3.0 32 05/04/17 20:00 94 Nasal Cannula 3.0 32 05/04/17 16:00 98.1 100 20 159/95 91 Nasal Cannula 2.0 Height (Feet): 5 Height (Inches): 2.00 Weight (Pounds): 107 HEENT: anicteric Respiratory/Chest: normal breath sounds Cardiovascular: normal rate Abdomen: soft, non tender Microbiology Date/Time Source Procedure Growth Status 05/03/17 08:00 Sputum Gram Stain - Final Resulted 05/03/17 08:00 Sputum Culture - Preliminary Gram Negative Bacillus 1 Usual Upper Respiratory Carolyn Resulted Laboratory Tests Test 05/05/17 06:15 White Blood Count 6.5 K/UL (4.8-10.8) Red Blood Count 4.22 M/UL (4.20-5.40) Hemoglobin 12.6 G/DL (12.0-16.0) Hematocrit 40.2 % (37.0-47.0) Mean Corpuscular Volume 95 FL (80-99) Mean Corpuscular Hemoglobin 29.7 PG (27.0-31.0) Mean Corpuscular Hemoglobin Concent 31.2 G/DL (32.0-36.0) L Red Cell Distribution Width 12.1 % (11.6-14.8) Platelet Count 244 K/UL (150-450) Mean Platelet Volume 6.4 FL (6.5-10.1) L Neutrophils (%) (Auto) 50.1 % (45.0-75.0) Lymphocytes (%) (Auto) 36.3 % (20.0-45.0) Monocytes (%) (Auto) 12.1 % (1.0-10.0) H Eosinophils (%) (Auto) 0.7 % (0.0-3.0) Basophils (%) (Auto) 0.8 % (0.0-2.0) Sodium Level 142 MMOL/L (136-145) Potassium Level 3.6 MMOL/L (3.5-5.1) Chloride Level 102 MMOL/L (98-107) Carbon Dioxide Level 34 MMOL/L (21-32) H Anion Gap 6 mmol/L (5-15) Blood Urea Nitrogen 24 mg/dL (7-18) H Creatinine 0.6 MG/DL (0.55-1.30) Estimat Glomerular Filtration Rate mL/min (>60) Glucose Level 94 MG/DL (74-106) Calcium Level 8.3 MG/DL (8.5-10.1) L Phosphorus Level 3.0 MG/DL (2.5-4.9) Magnesium Level 2.0 MG/DL (1.8-2.4) Total Bilirubin 0.4 MG/DL (0.2-1.0) Aspartate Amino Transf (AST/SGOT) 12 U/L (15-37) L Alanine Aminotransferase (ALT/SGPT) 31 U/L (12-78) Alkaline Phosphatase 59 U/L (46-116) Total Protein 5.9 G/DL (6.4-8.2) L Albumin 3.0 G/DL (3.4-5.0) L Globulin 2.9 g/dL Albumin/Globulin Ratio 1.0 (1.0-2.7) Current Medications Medications (Trade) Dose Ordered Sig/Colleen Route PRN Reason Start Time Stop Time Status Last Admin Dose Admin Albuterol/ Ipratropium (Albuterol/ Ipratropium) 3 ml Q4H PRN HHN dyspnea 05/03/17 21:00 05/08/17 20:59 Azithromycin (Zithromax) 500 mg DAILY ORAL 05/04/17 09:00 05/10/17 16:59 05/05/17 09:23 Dextrose (Dextrose 50%) STAT PRN IV Hypoglycemia 05/03/17 21:00 06/02/17 20:59 Heparin Sodium (Porcine) (Heparin 5000 units/ml) 5,000 units EVERY 12 HOURS SUBQ 05/03/17 22:00 06/01/17 21:59 05/05/17 09:26 Lorazepam (Ativan 2mg/ml 1ml) 0.5 mg Q4H PRN IV For Anxiety 05/03/17 21:00 05/10/17 20:59 Methylprednisolone Sodium Succinate (Solu-MEDROL) 60 mg DAILY IV 05/05/17 09:00 06/01/17 21:59 05/05/17 09:24 Nitroglycerin (Ntg) 0.4 mg Q5M X 3 DOSES PRN SL Prn Chest Pain 05/03/17 20:45 06/01/17 07:59 Ondansetron HCl (Zofran) 4 mg Q6H PRN IVP Nausea & Vomiting 05/03/17 21:00 06/02/17 20:59 Promethazine HCl/ Codeine (Phenergan with Codeine) 5 ml Q6H PRN ORAL cough 05/03/17 21:00 06/02/17 20:59 Temazepam (Restoril) 15 mg HSPRN PRN ORAL Insomnia 05/03/17 21:00 05/09/17 20:59 Theophylline (Marcelino-Dur) 100 mg EVERY 12 HOURS ORAL 05/03/17 22:00 06/01/17 21:59 05/05/17 09:23 GIANFRANCO MORALES M.D. May 05, 2017 12:22
[2017-05-06 04:00] VITALS: BP 129/79
[2017-05-06 08:00] VITALS: BP 131/86
[2017-05-06] MEDS: Theophylline ER 100mg ORAL SCH (08:27)
[2017-05-06] MEDS: Azithromycin 250mg tab ORAL SCH (08:30)
[2017-05-06] MEDS: Heparin 5000 units/ml inj SUBQ SCH (08:32)
[2017-05-06] MEDS: Solu-MEDROL 125mg Inj IV SCH (08:34)
--- NOTE | 2017-05-06 09:29 | Infectious Diseases Prog Note ---
Assessment/Plan Assessment/Plan ASSESSMENT: The patient is a 71-year-old female with, Chronic obstructive pulmonary disease exacerbation. doubt Nl : SCx: Cx GNR , St maltophilia and Nl floral : contaminant Shortness of breath. improving cough none COPD Renal stone PLAN: Cont pt on Zithromax d# 4 / 5 , upon DC will change to PO ( Rx in chart ) Monitor CBC Monitor BMP Monitor chest x-ray monitor Cultures Subjective Allergies: Coded Allergies: No Known Allergies (Unverified , 05/02/17) Subjective no cough , SOB improved Objective Vital Signs Last 24 Hour Vital Signs Date Time Temp Pulse Resp B/P (MAP) Pulse Ox O2 Delivery O2 Flow Rate FiO2 05/06/17 08:00 97.5 96 17 131/86 95 Nasal Cannula 2.5 05/06/17 04:00 97.2 78 18 129/79 96 Nasal Cannula 2.0 05/05/17 23:00 97.0 75 20 110/68 99 Room Air 05/05/17 19:20 95 Room Air 05/05/17 19:20 Room Air 05/05/17 19:19 84 18 Room Air 21 05/05/17 19:08 97.2 85 20 116/74 97 Room Air 05/05/17 16:12 97.9 90 20 153/89 98 Room Air 05/05/17 12:00 97.5 85 20 129/83 99 Nasal Cannula 2.0 Height (Feet): 5 Height (Inches): 2.00 Weight (Pounds): 107 HEENT: anicteric Respiratory/Chest: no respiratory distress Cardiovascular: regularly irregular Abdomen: no organomegaly Current Medications Medications (Trade) Dose Ordered Sig/Colleen Route PRN Reason Start Time Stop Time Status Last Admin Dose Admin Albuterol/ Ipratropium (Albuterol/ Ipratropium) 3 ml Q4H PRN HHN dyspnea 05/03/17 21:00 05/08/17 20:59 Azithromycin (Zithromax) 500 mg DAILY ORAL 05/04/17 09:00 05/10/17 16:59 05/06/17 08:30 Dextrose (Dextrose 50%) STAT PRN IV Hypoglycemia 05/03/17 21:00 06/02/17 20:59 Heparin Sodium (Porcine) (Heparin 5000 units/ml) 5,000 units EVERY 12 HOURS SUBQ 05/03/17 22:00 06/01/17 21:59 05/06/17 08:32 Lorazepam (Ativan 2mg/ml 1ml) 0.5 mg Q4H PRN IV For Anxiety 05/03/17 21:00 05/10/17 20:59 Methylprednisolone Sodium Succinate (Solu-MEDROL) 60 mg DAILY IV 05/05/17 09:00 06/01/17 21:59 05/06/17 08:34 Nitroglycerin (Ntg) 0.4 mg Q5M X 3 DOSES PRN SL Prn Chest Pain 05/03/17 20:45 06/01/17 07:59 Ondansetron HCl (Zofran) 4 mg Q6H PRN IVP Nausea & Vomiting 05/03/17 21:00 06/02/17 20:59 Promethazine HCl/ Codeine (Phenergan with Codeine) 5 ml Q6H PRN ORAL cough 05/03/17 21:00 06/02/17 20:59 05/06/17 08:27 Temazepam (Restoril) 15 mg HSPRN PRN ORAL Insomnia 05/03/17 21:00 05/09/17 20:59 Theophylline (Marcelino-Dur) 100 mg EVERY 12 HOURS ORAL 05/03/17 22:00 06/01/17 21:59 05/06/17 08:27 GIANFRANCO MORALES M.D. May 06, 2017 09:29
[2017-05-06 12:00] VITALS: BP 146/83
[2017-05-06] MEDS ORDERED: THEOPHYLLINE A100 MG ORAL (14:40)
--- NOTE | 2017-05-06 14:41 | Pulmonology Progress Note ---
Assessment/Plan Problems: (1) Acute on chronic respiratory failure (2) COPD exacerbation Assessment/Plan dc planning today feeling much better improving echo report noted cardio note appreciated dc steoids sputum negative Subjective Interval Events: late note for 05/05/ doing better, less short of breath Constitutional: Reports: no symptoms HEENT: Repors: no symptoms Allergies: Coded Allergies: No Known Allergies (Unverified , 05/02/17) Objective Last 24 Hour Vital Signs Date Time Temp Pulse Resp B/P (MAP) Pulse Ox O2 Delivery O2 Flow Rate FiO2 05/06/17 12:00 97.7 96 18 146/83 94 Nasal Cannula 2.5 05/06/17 08:00 Room Air 21 05/06/17 08:00 97.5 96 17 131/86 95 Nasal Cannula 2.5 05/06/17 08:00 80 18 Room Air 21 05/06/17 08:00 96 Room Air 21 05/06/17 04:00 97.2 78 18 129/79 96 Nasal Cannula 2.0 05/05/17 23:00 97.0 75 20 110/68 99 Room Air 05/05/17 19:20 95 Room Air 05/05/17 19:20 Room Air 05/05/17 19:19 84 18 Room Air 21 05/05/17 19:08 97.2 85 20 116/74 97 Room Air 05/05/17 16:12 97.9 90 20 153/89 98 Room Air General Appearance: WD/WN HEENT: normocephalic Respiratory/Chest: chest wall non-tender, normal breath sounds Breasts: no masses Cardiovascular: normal peripheral pulses Abdomen: normal bowel sounds, soft, non tender Extremities: no cyanosis, no clubbing Skin: no rash Current Medications Medications (Trade) Dose Ordered Sig/Colleen Route PRN Reason Start Time Stop Time Status Last Admin Dose Admin Albuterol/ Ipratropium (Albuterol/ Ipratropium) 3 ml Q4H PRN HHN dyspnea 05/03/17 21:00 05/08/17 20:59 Azithromycin (Zithromax) 500 mg DAILY ORAL 05/04/17 09:00 05/10/17 16:59 05/06/17 08:30 Dextrose (Dextrose 50%) STAT PRN IV Hypoglycemia 05/03/17 21:00 06/02/17 20:59 Heparin Sodium (Porcine) (Heparin 5000 units/ml) 5,000 units EVERY 12 HOURS SUBQ 05/03/17 22:00 06/01/17 21:59 05/06/17 08:32 Lorazepam (Ativan 2mg/ml 1ml) 0.5 mg Q4H PRN IV For Anxiety 05/03/17 21:00 05/10/17 20:59 Methylprednisolone Sodium Succinate (Solu-MEDROL) 60 mg DAILY IV 05/05/17 09:00 06/01/17 21:59 05/06/17 08:34 Nitroglycerin (Ntg) 0.4 mg Q5M X 3 DOSES PRN SL Prn Chest Pain 05/03/17 20:45 06/01/17 07:59 Ondansetron HCl (Zofran) 4 mg Q6H PRN IVP Nausea & Vomiting 05/03/17 21:00 06/02/17 20:59 Promethazine HCl/ Codeine (Phenergan with Codeine) 5 ml Q6H PRN ORAL cough 05/03/17 21:00 06/02/17 20:59 05/06/17 08:27 Temazepam (Restoril) 15 mg HSPRN PRN ORAL Insomnia 05/03/17 21:00 05/09/17 20:59 Theophylline (Marcelino-Dur) 100 mg EVERY 12 HOURS ORAL 05/03/17 22:00 06/01/17 21:59 05/06/17 08:27 OSWALD LEAL May 06, 2017 14:41
--- NOTE | 2017-05-06 14:42 | Pulmonology Progress Note ---
Assessment/Plan Problems: (1) Acute on chronic respiratory failure (2) COPD exacerbation Assessment/Plan dc home feeling much better improving f/u as outpatient Subjective ROS Limited/Unobtainable: No Interval Events: feeling better, wants portable oxygen Allergies: Coded Allergies: No Known Allergies (Unverified , 05/02/17) Objective Last 24 Hour Vital Signs Date Time Temp Pulse Resp B/P (MAP) Pulse Ox O2 Delivery O2 Flow Rate FiO2 05/06/17 12:00 97.7 96 18 146/83 94 Nasal Cannula 2.5 05/06/17 08:00 Room Air 21 05/06/17 08:00 97.5 96 17 131/86 95 Nasal Cannula 2.5 05/06/17 08:00 80 18 Room Air 21 05/06/17 08:00 96 Room Air 21 05/06/17 04:00 97.2 78 18 129/79 96 Nasal Cannula 2.0 05/05/17 23:00 97.0 75 20 110/68 99 Room Air 05/05/17 19:20 95 Room Air 05/05/17 19:20 Room Air 05/05/17 19:19 84 18 Room Air 21 05/05/17 19:08 97.2 85 20 116/74 97 Room Air 05/05/17 16:12 97.9 90 20 153/89 98 Room Air General Appearance: WD/WN HEENT: normocephalic, atraumatic Respiratory/Chest: chest wall non-tender, lungs clear Breasts: no masses Cardiovascular: normal peripheral pulses, regular rhythm Abdomen: normal bowel sounds, soft, non tender Extremities: no cyanosis Skin: no rash Neurologic/Psychiatric: desk officer II-XII grossly normal Lymphatic: no neck adenopathy Musculoskeletal: no effusion Current Medications Medications (Trade) Dose Ordered Sig/Colleen Route PRN Reason Start Time Stop Time Status Last Admin Dose Admin Albuterol/ Ipratropium (Albuterol/ Ipratropium) 3 ml Q4H PRN HHN dyspnea 05/03/17 21:00 05/08/17 20:59 Azithromycin (Zithromax) 500 mg DAILY ORAL 05/04/17 09:00 05/10/17 16:59 05/06/17 08:30 Dextrose (Dextrose 50%) STAT PRN IV Hypoglycemia 05/03/17 21:00 06/02/17 20:59 Heparin Sodium (Porcine) (Heparin 5000 units/ml) 5,000 units EVERY 12 HOURS SUBQ 05/03/17 22:00 06/01/17 21:59 05/06/17 08:32 Lorazepam (Ativan 2mg/ml 1ml) 0.5 mg Q4H PRN IV For Anxiety 05/03/17 21:00 05/10/17 20:59 Methylprednisolone Sodium Succinate (Solu-MEDROL) 60 mg DAILY IV 05/05/17 09:00 06/01/17 21:59 05/06/17 08:34 Nitroglycerin (Ntg) 0.4 mg Q5M X 3 DOSES PRN SL Prn Chest Pain 05/03/17 20:45 06/01/17 07:59 Ondansetron HCl (Zofran) 4 mg Q6H PRN IVP Nausea & Vomiting 05/03/17 21:00 06/02/17 20:59 Promethazine HCl/ Codeine (Phenergan with Codeine) 5 ml Q6H PRN ORAL cough 05/03/17 21:00 06/02/17 20:59 05/06/17 08:27 Temazepam (Restoril) 15 mg HSPRN PRN ORAL Insomnia 05/03/17 21:00 05/09/17 20:59 Theophylline (Marcelino-Dur) 100 mg EVERY 12 HOURS ORAL 05/03/17 22:00 06/01/17 21:59 05/06/17 08:27 OSWALD LEAL May 06, 2017 14:42
[2017-05-06 15:43] VITALS: BP 133/72
[2017-05-06 20:00] VITALS: BP 153/76
[2017-05-09] MEDS ORDERED: ZITHROMAX250 MG ORAL (10:32)
[2017-05-09] MEDS ORDERED: MEDROL4 MG ORAL (10:33)
--- NOTE | 2017-05-09 10:39 | Discharge Summary ---
Discharge Summary Hospital Course Date of Admission May 02, 2017 at 06:35 Date of Discharge May 06, 2017 at 20:10 Admitting Diagnosis copd exacerbation DEBORAH Bautista is a 71 year old female who was admitted on May 02, 2017 at 06:35 for Chronic Obstructive Pulmonary Disease Exacerbation Hospital Course dc summary #[id number] Discharge Medications New Medications: Azithromycin* (Zithromax*) 250 Mg Tablet 250 MG ORAL DAILY, #1 TAB Methylprednisolone* (Medrol*) 4 Mg Tablet 4 MG ORAL DAILY, #10 TAB 0 Refills Theophylline (Theodur*) 100 Mg Tab.er.12h 100 MG ORAL EVERY 12 HOURS for 30 Days, TAB Continued Medications: Albuterol Sulfate (Ventolin Hfa) 18 Gm Hfa.aer.ad 1 PUFF INH EVERY 6 HOURS, #18 GM 0 Refills Buspirone Hcl* (Buspirone Hcl*) 15 Mg Tablet 15 MG ORAL TWICE A DAY, #60 TAB 0 Refills Tiotropium Hart (Spiriva) 18 Mcg Cap.w.dev 1 PUFF INH DAILY, EA Discharge Condition Upon Discharge: stable Discharge Disposition Patient was discharged to Home with Home Health Services Discharge Diagnoses: Discharge Instructions Discharge Instructions Special Instructions I have been assigned to complete a D/C Summary on this account. I was not involved in the patient management Shaneka Garcia NP (Vanchtein) May 09, 2017 10:38
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
== END 2017-05-06 20:10 | disposition home health service (06) | DRG 189 ==
LOC: EDBD 05:44 → EMR 06:30 → 2E 06:35 → EDBEDREQ 06:59 → 4E 05-03 20:33
DX: J96.01 Acute respiratory failure with hypoxia (principal); J44.1 Chronic obstructive pulmonary disease with (acute) exacerbation; V89.2XXS Person injured in unspecified motor-vehicle accident, traffic, sequela; N20.0 Calculus of kidney; Z23 Encounter for immunization
CPT/HCPCS: 36415; 71010; 80053; 81003; 82550; 82553; 83735; 83880; 84100; 84484; 85025; 87040; 87070; 87181; 87205; 90630; 90732; 93005; 93306; 94640; 94664; 94760; 99285